=== PATIENT | male | born 1975 | race Caucasian/White ===

== ENCOUNTER 2019-11-11 07:29 | Outpatient (CLI) | payer MEDICARE, MEDICAID, SELFPAY ==
[2019-11-11 07:36] VITALS: BMI 21.7
--- NOTE | 2019-11-11 07:36 | ECG_ITS ---
NAME OF STUDY: LEXISCAN SESTAMIBI STRESS TEST INDICATION: Chest Pain LEXISCAN STRESS TEST ORDERING PHYSICIAN: Dany CLINICAL INFORMATION: Coronary artery disease with recurrent chest pain INTERPRETATION: 1. The patient was brought to the laboratory where Lexiscan was infused over 20 seconds. The resting blood pressure was 94/67. Maximum blood pressure was 131/69. The resting heart rate was 41 beats per minute. The maximum heart rate is 98 beats per minute. 2. The baseline electrocardiogram reveals sinus bradycardia with an old anterior wall AZ. 3. With Lexiscan infusion, there were no ST segment changes to suggest ischemia. 4. The patient experienced no symptoms or arrhythmias during the examination. CONCLUSION: 1. Unremarkable Lexiscan infusion. 2. Nuclear imaging to follow. Electronically Signed On 11-11-2019 15:53:03 CDT by Swapnil Saenz M.D. [email or web address]
--- NOTE | 2019-11-11 07:37 | NMCV_ITS ---
NM michael perf SPECT r/s* [id number] Sukhwinder Whitney Age: 44 Gender: M : 1975 Exam Date: 11/11/2019 08:39 Ordering Phys: Swapnil Saenz MD ([email or web address]) Technologist: ALEX Mcginnis Exam Location: [facility] Indications: Chest pain STRESS TEST Please see separate stress test report in [facility] for full findings IMAGE PROTOCOL Rest/Stress 1 Lexiscan Day Radiopharmaceutical Dose (mCi) Administration Site Administered by Rest: Tc-99m 10.9 IV ALEX Ty Sestamibi Stress:Tc-99m 32.2 IV ALEX Mcginnis Sestamiherminia Rest: 11-Nov-2019 60 Discovery 630 Stress: 11-Nov-2019 30 Discovery 630 0.4mg Lexiscan. Images obtained in supine and prone position. SPECT RESULTS Technical Quality: Excellent Raw Data Analysis: Normal Image Corrections: No attenuation or motion correction applied Summed Stress Score: 21 Summed Rest Score: 26 Summed Difference Score: 0 PERFUSION FINDINGS Medium-sized area of fixed perfusion defect noted in mid to distal anterior and anteroseptal wall on both rest and stress images suggestive of old myocardial infarction versus scarring. No stephan-infarct ischemia noted. FUNCTIONAL RESULTS (calculated via Gated SPECT) Stress Image LV EF (%): 46 Stress EDV (mL):208 TID: 0.93 Stress ESV (mL):113 Rest Image LV EF (%): 46 FUNCTIONAL FINDINGS: Mid to distal anterior apical akinesis IMPRESSIONS Medium-sized area of old myocardial infarction versus scarring noted in mid to distal anterior and anteroseptal wall suggestive of lesion in mid LAD territory. This study is negative for ischemia. EKG segment will be documented separately. Kavita Arvizu MD (Electronically Signed) Final Date: 11 November 2019 17:24 S
--- NOTE | 2019-11-11 09:19 | SUR.PREOP ---
Patient reports no pain or discomfort prior to the start of the procedure.
[2019-11-11] MEDS: regadenoson 0.4 Mg/5 ml Syringe IVP (09:34)
[2019-11-11 09:40] VITALS: BP 121/62; PULSE 64
== END 2019-11-11 07:30 | disposition home or self-care (01) ==
LOC: CDL 07:34
PROVIDERS: Family Provider Family Medicine; Visit Provider Internal Medicine Cardiovascular Disease
DX: R07.9 Chest pain, unspecified (principal); R94.39 Abnormal result of other cardiovascular function study
CPT/HCPCS: 78452; 93017; A9500; J2785

== ENCOUNTER 2020-11-07 00:23 | Inpatient (IN) | payer MEDICARE, MEDICAID, SELFPAY ==
[2020-11-07] VITALS (41 sets, daily range): BP systolic 86–134; BP diastolic 50–82; PULSE 39–94; RESP 12–34; TEMP 36.6–36.8; O2SAT 92–98; BMI 21.2
--- NOTE | 2020-11-07 00:35 | CTR_ITS ---
PROCEDURE INFORMATION: Exam: CT Head Without Contrast Exam date and time: 11/07/2020 12:36 AM Age: 45 years old Clinical indication: Weakness, extremity; Left; Patient HX: New onset L sided weakness; Additional info: Left sided weakness TECHNIQUE: Imaging protocol: Computed tomography of the head without contrast. Radiation optimization: All CT scans at this facility use at least one of these dose optimization techniques: automated exposure control; mA and/or kV adjustment per patient size (includes targeted exams where dose is matched to clinical indication); or iterative reconstruction. Other technique: STROKE PROTOCOL was implemented. COMPARISON: No relevant prior studies available. RADIATION DOSE METRICS: Total DLP (mGy-cm): 1365.17 FINDINGS: Brain: Small left basal ganglia chronic infarction is noted. No hemorrhage or evidence of acute infarction is seen. Cerebral ventricles: No ventriculomegaly. Paranasal sinuses: Visualized sinuses are unremarkable. No fluid levels. Mastoid air cells: Visualized mastoid air cells are well aerated. Bones/joints: Unremarkable. No acute fracture. Soft tissues: Unremarkable. CT/CT head wo con* [id number] IMPRESSION: No acute intracranial abnormality. ASSESSMENT: ASPECTS (Brittani Stroke Program Early CT Score) is 10. Radiation Dose CTDIVOL = (mGy): DLP = 1365.17 (mGy-cm)
--- NOTE | 2020-11-07 00:38 | ED_ITS ---
HPI - Neuro Symptoms/Deficit General: Chief Complaint: Neuro Symptoms/Deficit Stated Complaint: possible stroke Time Seen by Provider: 11/07/20 00:35 History of Present Illness: HPI Narrative: 45-year-old male with a history of hypertension coronary disease. He is on Plavix and aspirin. He is not anticoagulated. He presents with around 1030 onset of left-sided weakness, facial droop, language problems, this evening. He noticed it more a little before 11 when he got out of bed to turn off the TV. He fell at that time striking his left jaw on a nightstand. His brought him to the ER. She states that he has had strokes in the past, but they were asymptomatic, only found on MRI. Last Observed Normal: 22:30 Timing confirmed by: spouse Location: speech, left face, dysarthria, left arm and left leg History of same: No Severity: moderate Quality: weak and numb Relieving factors: none Exacerbating factors: none Context: sudden onset On Anticoagulants: No Associated symptoms: Reports weakness; Deny chest pain, cough, diaphoresis, fevers/chills, headache(s), nausea, seizures, short of breath, syncope or vomiting Treatments Prior to Arrival: none Review of Systems Const: Denies: fever(s), chills or diaphoresis Card: Denies: chest pain or syncope Resp: Denies: dyspnea or productive cough GI: Denies: abdominal pain, nausea, vomiting or diarrhea Neuro: Reports: numbness in extremities, weakness in extremities and lack of coordination; Denies: headache(s) [facility] PFSH: Medical History ASHD (arteriosclerotic heart disease) CVA (cerebral vascular accident) Dyslipidemia HTN (hypertension) Ischemic cardiomyopathy Myocardial infarction Tobacco abuse Surgical History S/P angioplasty with stent Social History Smoking and tobacco status: current every day smoker cigarettes Household members: spouse Marital status: Current occupational status: disabled NIH stroke score NIHSS: Level Of Consciousness - 1a: 0 Level Of Consciousness Questions - 1b: Both Correct Level Of Consciousness Commands - 1c: Both Correct Best Gaze - 2: Partial Gaze Palsy Visual Hinkle - 3: No Visual Loss Facial Palsy - 4: Partial Paralysis Motor Arm Right - 5: No Drift Motor Arm Left - 5: No Effort Against [place]mer[place] Motor Leg Right - 6: No Drift Motor Leg Left - 6: Drift Limb Ataxia - 7: Present In Two Limbs Sensory - 8: Mild To Moderate Loss Best Language - 9: Mild/Moderate Aphasia Dysarthia - 10: Mild/Moderate Dysarthia Extinction And Inattention - 11: 0 Score: Total Score: 12 Physical Exam Const: COMMON NORMALS: patient oriented x3 GENERAL APPEARANCE: well developed ORIENTATION/CONSCIOUSNESS: Yes oriented to person, Yes oriented to place and Yes oriented to time HENMT: COMMON NORMALS: normocephalic, external ears normal and Normal external nose present HEAD & SCALP: normocephalic FACE & SINUS: normal facial exam NOSE: Normal external nose present and No nasal discharge present EXTERNAL EAR: Yes external ears normal Eye: COMMON NORMALS: Equal, round and reactive pupils present, EOMs intact bilaterally and conjunctivae normal EYELID: eyelids normal CONJUNCTIVA: Yes conjunctivae normal PUPIL: Yes Equal, round and reactive pupils present Neck/C-Spine: GENERAL: No tracheal deviation Chest: COMMONS NORMALS: normal inspection of the chest CHEST: No tenderness Resp: COMMON NORMALS: clear to auscultation bilaterally EFFORT & INSPECTION: No tachypneic, No respiratory distress, No retractions, No uses accessory muscles and No tracheal deviation AUSCULTATION: clear to auscultation bilaterally, no rhonchi, no wheezes and lung sounds not diminished Cardio: COMMON NORMALS: regular rate and regular rhythm RATE: regular rate RHYTHM: regular rhythm HEART SOUNDS: no murmurs PERIPHERAL PULSES: radial pulses present GI: INSPECTION: No abdominal distension AUSCULTATION: No Hyperactive bowel sounds present and No Hypoactive bowel sounds present PALPATION: No Guarding due to palpation present (GI) and No Rigid due to palpation PERCUSSION: no dullness to percussion and no tympanic to percussion Neuro: COMMON NORMALS: patient oriented x3 SENSORIUM/ORIENTATION: Yes oriented to person, Yes oriented to place and Yes oriented to time CRANIAL NERVES: Yes CN VII (facial) Laterality: left CN VII left: facial droop COORDINATION/BALANCE: No rtgibs-dy-kpll test normal and No oarh-gf-gvpg test normal SPEECH: speech abnormal SENSORY EXAM: Yes sensory level loss detected MOTOR EXAM: Abnormal motor strength present, Pronator motor function present and Motor fasciculations present COORDINATION: eeagwo-nf-vdrf test abnormal and kwqm-uj-fglg test abnormal Psych: COMMON NORMALS: mental status grossly normal Skin: COMMON NORMALS: no rashes or lesions noted GENERAL SKIN EXAM: no rashes or lesions noted Course Consultations: Consultation #1: keely Time: 00:35 Consultation #2: mihai Time: 01:31 Vital Signs: Vital signs: Vital Signs Temperature 97.8 F 11/07/20 02:55 Pulse Rate 45 L 11/07/20 04:25 Respiratory Rate 20 H 11/07/20 04:25 Blood Pressure 86/59 11/07/20 04:25 Pulse Oximetry 95 11/07/20 02:26 MDM - Neuro Symptoms/Deficit MDM Narrative: Medical decision making narrative: Patient presents with significant symptoms of stroke with time of onset conducive to TPA therapy. I spoke with neurology. She agrees. Noncontrast head CT was negative. TPA was administered. There is no worsening of the patient's neurological status on discharge to the ICU. Lab Data: Labs: Lab Results 11/07/20 11/07/20 11/07/20 Range/Units 00:30 00:30 00:30 WBC 8.8 (4.0-10.0) 10^3/ uL RBC 4.60 (4.1-5.3) 10^6/u L Hgb 14.4 (11.7-16.6) g/dL Hct 41.5 L (42.0-52.0) % MCV 90.2 (80-94) fL MCH 31.3 (28.0-34.0) pg MCHC 34.7 (30.0-36.0) g/dL RDW 13.9 (12.1-15.1) % Plt Count 243 (130-400) 10^3/c mm MPV 9.8 (7.4-10.4) fL Neut % (Auto) 57.7 % Lymph % (Auto) 28.4 % Surry % (Auto) 8.3 % Eos % (Auto) 4.6 % Baso % (Auto) 0.8 % Neut # (Auto) 5.07 (1.8-7.7) 10^3/u L Lymph # (Auto) 2.5 (0.8-4.8) 10^3/u L Surry # (Auto) 0.7 (0.2-0.9) 10^3/u L Eos # (Auto) 0.4 (0.0-0.8) 10^3/u L Baso # (Auto) 0.1 (0.0-0.1) 10^3/u L Nucleated RBC % (a uto) 0 % Nucleated RBCs # 0.0 /100WBC PT 13.70 (12.1-14.9) SECO NDS INR 1.02 (0.8-1.2) APTT 29.3 (23.9-36.7) SECO NDS Sodium 140 (136-145) mmol/L Potassium 4.6 (3.5-5.1) mmol/L Chloride 101 (98-107) mmol/L Carbon Dioxide 28 (22-29) mmol/L Anion Gap 15.6 (5-19) BUN 8 (6-20) mg/dL Creatinine 0.8 (0.7-1.2) mg/dL GFR Calculation 103.6 (90-130) mL/min Glucose 117 H (65-115) mg/dL Estimat Average Gl ucose Hemoglobin A1c (4.0-6.0) % Calculated Osmolal ity 289 (285-295) mOsm/k g Calcium 8.8 (8.5-10.5) mg/dL Total Bilirubin 0.2 (0.15-1.2) mg/dL AST 24 (0-40) U/L ALT 17 (0-41) U/L Alkaline Phosphata se 72 (40-130) IU/L Total Protein 6.5 L (6.6-8.7) g/dL Albumin 4.2 (3.5-5.2) g/dL Globulin 2.3 (1.3-4.6) g/dL Triglycerides (0-150) mg/dL Cholesterol (0-200) mg/dL LDL Cholesterol, C alc (50-129) mg/dL HDL Cholesterol (60-100) mg/dL LDL/HDL Ratio (0.00-3.22) RATI O Cholesterol/HDL Ra usha (1.0-5.00) mg/dL Urine Color (Yellow) Urine Appearance (CLEAR) Urine pH (5-7) Ur Specific Gravit y (1.005-1.030) Urine Protein (Negative) Urine Glucose (UA) (Normal) Urine Ketones (Negative) Urine Blood (Negative) Urine Nitrate (Negative) Urine Bilirubin (Negative) Prot Sulfosalicyli c Acd (Negative) Urine Urobilinogen (Negative) mg/dL Ur Leukocyte Lacey ase (Negative) Urine RBC (0-2) /hpf Urine WBC (0-5) /hpf Ur Squamous Epith Cells (0-5) /hpf Amorphous Sediment /hpf Urine Bacteria (NONE) /hpf Urine Opiates Scre en (Negative) ng/mL Ur Barbiturates Sc reen (Negative) ng/mL Ur Phencyclidine S crn (Negative) ng/mL Ur Amphetamines Sc reen (Negative) ng/mL U Benzodiazepines Scrn (Negative) ng/mL Urine Cocaine Scre en (Negative) ng/mL U Marijuana (THC) Screen (Negative) ng/mL 11/07/20 11/07/20 11/07/20 Range/Units 00:30 00:30 01:51 WBC (4.0-10.0) 10^3/ uL RBC (4.1-5.3) 10^6/u L Hgb (11.7-16.6) g/dL Hct (42.0-52.0) % MCV (80-94) fL MCH (28.0-34.0) pg MCHC (30.0-36.0) g/dL RDW (12.1-15.1) % Plt Count (130-400) 10^3/c mm MPV (7.4-10.4) fL Neut % (Auto) % Lymph % (Auto) % Surry % (Auto) % Eos % (Auto) % Baso % (Auto) % Neut # (Auto) (1.8-7.7) 10^3/u L Lymph # (Auto) (0.8-4.8) 10^3/u L Surry # (Auto) (0.2-0.9) 10^3/u L Eos # (Auto) (0.0-0.8) 10^3/u L Baso # (Auto) (0.0-0.1) 10^3/u L Nucleated RBC % (a uto) % Nucleated RBCs # /100WBC PT (12.1-14.9) SECO NDS INR (0.8-1.2) APTT (23.9-36.7) SECO NDS Sodium (136-145) mmol/L Potassium (3.5-5.1) mmol/L Chloride (98-107) mmol/L Carbon Dioxide (22-29) mmol/L Anion Gap (5-19) BUN (6-20) mg/dL Creatinine (0.7-1.2) mg/dL GFR Calculation (90-130) mL/min Glucose (65-115) mg/dL Estimat Average Gl ucose 111 Hemoglobin A1c 5.5 (4.0-6.0) % Calculated Osmolal ity (285-295) mOsm/k g Calcium (8.5-10.5) mg/dL Total Bilirubin (0.15-1.2) mg/dL AST (0-40) U/L ALT (0-41) U/L Alkaline Phosphata se (40-130) IU/L Total Protein (6.6-8.7) g/dL Albumin (3.5-5.2) g/dL Globulin (1.3-4.6) g/dL Triglycerides 241 H (0-150) mg/dL Cholesterol 154 (0-200) mg/dL LDL Cholesterol, C alc 73 (50-129) mg/dL HDL Cholesterol 33 L (60-100) mg/dL LDL/HDL Ratio 2.21 (0.00-3.22) RATI O Cholesterol/HDL Ra usha 4.67 (1.0-5.00) mg/dL Urine Color Yellow (Yellow) Urine Appearance Sl hazy (CLEAR) Urine pH 8 H (5-7) Ur Specific Gravit y 1.010 (1.005-1.030) Urine Protein Neg (Negative) Urine Glucose (UA) Norm (Normal) Urine Ketones Negative (Negative) Urine Blood Neg (Negative) Urine Nitrate Negative (Negative) Urine Bilirubin Neg (Negative) Prot Sulfosalicyli c Acd Negative (Negative) Urine Urobilinogen Norm (Negative) mg/dL Ur Leukocyte Lacey ase Negative (Negative) Urine RBC None (0-2) /hpf Urine WBC None (0-5) /hpf Ur Squamous Epith Cells None (0-5) /hpf Amorphous Sediment 1+ /hpf Urine Bacteria Trace (NONE) /hpf Urine Opiates Scre en (Negative) ng/mL Ur Barbiturates Sc reen (Negative) ng/mL Ur Phencyclidine S crn (Negative) ng/mL Ur Amphetamines Sc reen (Negative) ng/mL U Benzodiazepines Scrn (Negative) ng/mL Urine Cocaine Scre en (Negative) ng/mL U Marijuana (THC) Screen (Negative) ng/mL 11/07/20 Range/Units 01:51 WBC (4.0-10.0) 10^3/ uL RBC (4.1-5.3) 10^6/u L Hgb (11.7-16.6) g/dL Hct (42.0-52.0) % MCV (80-94) fL MCH (28.0-34.0) pg MCHC (30.0-36.0) g/dL RDW (12.1-15.1) % Plt Count (130-400) 10^3/c mm MPV (7.4-10.4) fL Neut % (Auto) % Lymph % (Auto) % Surry % (Auto) % Eos % (Auto) % Baso % (Auto) % Neut # (Auto) (1.8-7.7) 10^3/u L Lymph # (Auto) (0.8-4.8) 10^3/u L Surry # (Auto) (0.2-0.9) 10^3/u L Eos # (Auto) (0.0-0.8) 10^3/u L Baso # (Auto) (0.0-0.1) 10^3/u L Nucleated RBC % (a uto) % Nucleated RBCs # /100WBC PT (12.1-14.9) SECO NDS INR (0.8-1.2) APTT (23.9-36.7) SECO NDS Sodium (136-145) mmol/L Potassium (3.5-5.1) mmol/L Chloride (98-107) mmol/L Carbon Dioxide (22-29) mmol/L Anion Gap (5-19) BUN (6-20) mg/dL Creatinine (0.7-1.2) mg/dL GFR Calculation (90-130) mL/min Glucose (65-115) mg/dL Estimat Average Gl ucose Hemoglobin A1c (4.0-6.0) % Calculated Osmolal ity (285-295) mOsm/k g Calcium (8.5-10.5) mg/dL Total Bilirubin (0.15-1.2) mg/dL AST (0-40) U/L ALT (0-41) U/L Alkaline Phosphata se (40-130) IU/L Total Protein (6.6-8.7) g/dL Albumin (3.5-5.2) g/dL Globulin (1.3-4.6) g/dL Triglycerides (0-150) mg/dL Cholesterol (0-200) mg/dL LDL Cholesterol, C alc (50-129) mg/dL HDL Cholesterol (60-100) mg/dL LDL/HDL Ratio (0.00-3.22) RATI O Cholesterol/HDL Ra usha (1.0-5.00) mg/dL Urine Color (Yellow) Urine Appearance (CLEAR) Urine pH (5-7) Ur Specific Gravit y (1.005-1.030) Urine Protein (Negative) Urine Glucose (UA) (Normal) Urine Ketones (Negative) Urine Blood (Negative) Urine Nitrate (Negative) Urine Bilirubin (Negative) Prot Sulfosalicyli c Acd (Negative) Urine Urobilinogen (Negative) mg/dL Ur Leukocyte Lacey ase (Negative) Urine RBC (0-2) /hpf Urine WBC (0-5) /hpf Ur Squamous Epith Cells (0-5) /hpf Amorphous Sediment /hpf Urine Bacteria (NONE) /hpf Urine Opiates Scre en Negative (Negative) ng/mL Ur Barbiturates Sc reen Negative (Negative) ng/mL Ur Phencyclidine S crn Negative (Negative) ng/mL Ur Amphetamines Sc reen Negative (Negative) ng/mL U Benzodiazepines Scrn Negative (Negative) ng/mL Urine Cocaine Scre en Negative (Negative) ng/mL U Marijuana (THC) Screen Positive H (Negative) ng/mL Critical Care Time Critical Care Time: Critical Care Time: Yes Total Critical Care Time: 40 Attestation: This case had a high probability of a clinically significant, sudden, or life threatening deterioration of this patient's condition which required my full and direct attention, intervention and personal management. Discharge Plan Discharge Patient Disposition: Admitted As Inpatient Admit Provider: Wilmer Harrison Clinical Impression: CVA (cerebral vascular accident) Qualifiers: CVA mechanism: thrombosis Precerebral and cerebral artery: middle cerebral artery Laterality of affected vessel: right Qualified Code(s): I63.311 - Cerebral infarction due to thrombosis of right middle cerebral artery Condition: Serious Coding Level of Care Code ED Accounts Manager for [facility] Fwd Exam Comprehensive
--- NOTE | 2020-11-07 00:41 | CTR_ITS ---
PROCEDURE INFORMATION: Exam: CT Angiography Head With Contrast, Arteriography Exam date and time: 11/07/2020 12:49 AM Age: 45 years old Clinical indication: Weakness; Additional info: Left weakness TECHNIQUE: Imaging protocol: Computed tomography angiography of the head with contrast. Exam focused on the arteries. 3D rendering (Not supervised by radiologist): MIP and/or 3D reconstructed images were created by the technologist. Radiation optimization: All CT scans at this facility use at least one of these dose optimization techniques: automated exposure control; mA and/or kV adjustment per patient size (includes targeted exams where dose is matched to clinical indication); or iterative reconstruction. Contrast material: OMNI 350; Contrast volume: 95 ml; Contrast route: INTRAVENOUS (IV); COMPARISON: CT head wo con* [id number] 11/07/2020 12:37 AM RADIATION DOSE METRICS: Total DLP (mGy-cm): 48 FINDINGS: ANTERIOR CIRCULATION: Right internal carotid artery: Unremarkable. Intracranial segment is patent with no significant stenosis. No aneurysm. Right middle cerebral artery: Short segment occlusion of the distal M1 segment of the right MCA is noted. The M2 and M3 branches of the right MCA are reconstituted via collateral flow. Right anterior cerebral artery: Unremarkable. No occlusion or significant stenosis. No aneurysm. Left internal carotid artery: Unremarkable. Intracranial segment is patent with no significant stenosis. No aneurysm. Left middle cerebral artery: The M1 segment of the left MCA is occluded. The M2 branches of the left MCA are reconstituted via collateral flow. Left anterior cerebral artery: Unremarkable. No occlusion or significant stenosis. No aneurysm. POSTERIOR CIRCULATION: Right vertebral artery: Unremarkable. No occlusion or significant stenosis. No aneurysm. Left vertebral artery: Unremarkable. No occlusion or significant stenosis. No aneurysm. Basilar artery: Unremarkable. No occlusion or significant stenosis. No aneurysm. Right posterior cerebral artery: Unremarkable. No occlusion or significant stenosis. No aneurysm. Left posterior cerebral artery: Unremarkable. No occlusion or significant stenosis. No aneurysm. 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 PROCEDURE INFORMATION: Exam: CT Angiography Neck With Contrast Exam date and time: 11/07/2020 12:49 AM Age: 45 years old Clinical indication: Weakness; Additional info: Left weakness TECHNIQUE: Imaging protocol: Computed tomography angiography of the neck with contrast. 3D rendering (Not supervised by radiologist): MIP and/or 3D reconstructed images were created by the technologist. Radiation optimization: All CT scans at this facility use at least one of these dose optimization techniques: automated exposure control; mA and/or kV adjustment per patient size (includes targeted exams where dose is matched to clinical indication); or iterative reconstruction. Contrast material: OMNI 350; Contrast volume: 95 ml; Contrast route: INTRAVENOUS (IV); COMPARISON: none available. RADIATION DOSE METRICS: Total DLP (mGy-cm): 2036.48 FINDINGS: Right common carotid artery: No stenosis. No dissection or occlusion. Right internal carotid artery: No stenosis of the extracranial segment. No dissection or occlusion. Right external carotid artery: No occlusion or stenosis of the origin. Left common carotid artery: No stenosis. No dissection or occlusion. Left internal carotid artery: No stenosis of the extracranial segment. No dissection or occlusion. Left external carotid artery: No occlusion or stenosis of the origin. Right vertebral artery: No stenosis. No dissection or occlusion. Left vertebral artery: No stenosis. No dissection or occlusion. Soft tissues: Normal. No significant soft tissue swelling. Bones/joints: No acute fracture. CT/CT angio headneck* [id number] IMPRESSION: Patent intracranial arteries. REFERENCES: NASCET CRITERIA. The degree of internal carotid artery stenosis is based on NASCET criteria. Normal is no stenosis. Mild is less than 50% stenosis. Moderate is 50-69% stenosis. Severe is 70% to 99% stenosis. Total occlusion is no detectable patent lumen. Radiation Dose CTDIVOL = (mGy): DLP = 2036.48~2036.48 (mGy-cm)
--- NOTE | 2020-11-07 00:41 | ECG_ITS ---
[facility] Test Date: 2020-11-07 Pat Name: Sukhwinder Whitney Department: Room: Gender: Male Medical Csr: : 1975 Requested By: Henrique Alvarez Order Number: [id number] Pushpa MD: Robb Wyman M.D. Measurements Intervals Cable Rate: P: MO: QRS: 0 QRSD: T: 0 QT: QTc: Interpretive Statements SINUS RHYTHM. BASELINE ARTIFACT ANTERIOR MYOCARDIAL INFARCTION, PROBABLY OLD Compared to ECG 05/10/2018 12:42:55 ANTERIOR MYOCARDIAL INFARCTION FINDING STILL PRESENT Electronically Signed On 11-07-2020 12:34:37 CDT by Robb Wyman M.D. [email or web address]
--- NOTE | 2020-11-07 00:41 | XRR_ITS ---
PROCEDURE INFORMATION: Exam: XR Chest Exam date and time: 11/07/2020 2:16 AM Age: 45 years old Clinical indication: Other: Weakness; Prior surgery; Surgery date: 6+ months; Surgery type: Stent TECHNIQUE: Imaging protocol: XR of the chest. Views: 1 view. COMPARISON: CR Chest 1 [place] [id number] 05/10/2018 1:27 PM FINDINGS: Lungs: The lungs are clear. Pleural spaces: Unremarkable. No pleural effusion. No pneumothorax. Heart/Mediastinum: Unremarkable. No cardiomegaly. Bones/joints: Unremarkable. XR/XR chest 1V portable [id number] IMPRESSION: No acute cardiopulmonary abnormality.
[2020-11-07 01:00] LABS: Basophils # 0.1 10^3/uL (0.0-0.1); Basophils % 0.8 %; Eosinophils # 0.4 10^3/uL (0.0-0.8); Eosinophils % 4.6 %; Hematocrit 41.5 % (42.0-52.0); Hemoglobin 14.4 g/dL (11.7-16.6); Lymphocytes # 2.5 10^3/uL (0.8-4.8); Lymphocytes % 28.4 %; Mean Corpuscular HGB Conc 34.7 g/dL (30.0-36.0); Mean Corpuscular Hemoglobin 31.3 pg (28.0-34.0); Mean Corpuscular Volume 90.2 fL (80-94); Mean Platelet Volume 9.8 fL (7.4-10.4); Monocytes # 0.7 10^3/uL (0.2-0.9); Monocytes % 8.3 %; Neutrophils # 5.07 10^3/uL (1.8-7.7); Neutrophils % 57.7 %; Nucleated Red Blood Cells % 0 %; Platelet Count 243 10^3/cmm (130-400); Red Cell Distribution Width 13.9 % (12.1-15.1); White Blood Count 8.8 10^3/uL (4.0-10.0)
[2020-11-07 01:10] LABS: INR 1.02 (0.8-1.2)
[2020-11-07 01:11] LABS: Partial Thromboplastin Time 29.3 SECONDS (23.9-36.7)
[2020-11-07 01:22] LABS: Alanine Aminotransferase 17 U/L (0-41); Albumin Level 4.2 g/dL (3.5-5.2); Alkaline Phosphatase 72 IU/L (40-130); Blood Urea Nitrogen 8 mg/dL (6-20); Calcium 8.8 mg/dL (8.5-10.5); Carbon Dioxide 28 mmol/L (22-29); Chloride 101 mmol/L (98-107); Globulin 2.3 g/dL (1.3-4.6); Glomerular Filtration Rate 103.6 mL/min (90-130); Glucose 117 mg/dL (65-115); Osmolality Calculated 289 mOsm/kg (285-295); Sodium 140 mmol/L (136-145); Total Bilirubin 0.2 mg/dL (0.15-1.2); Total Protein 6.5 g/dL (6.6-8.7)
[2020-11-07 01:24] LABS: Anion Gap 15.6 (5-19); Aspartate Amino Transferase 24 U/L (0-40); Potassium 4.6 mmol/L (3.5-5.1)
[2020-11-07] MEDS: iohexol 350 mg/mL 100 mL Btl IV (01:42)
[2020-11-07 02:08] LABS: Add Urine Microscopic? YES; Bilirubin Urine Neg (Negative); Blood Urine Neg (Negative); Glucose Urine UA Norm (Normal); Ketones Urine Negative (Negative); Leukocyte Esterase Urine Negative (Negative); Nitrate Urine Negative (Negative); Protein Urine Neg (Negative); Sulfosalicylic Acid Urine Negative (Negative); Urine Appearance SL Hazy (CLEAR); Urine Color Yellow (Yellow); Urobilinogen Urine Norm (Negative); pH Urine 8 (5-7)
[2020-11-07 02:09] LABS: Amphetamines Screen Urine Negative (Negative); Barbiturates Screen Urine Negative (Negative); Benzodiazepines Screen Urine Negative (Negative); Cocaine Screen Urine Negative (Negative); Opiate Screen Urine Negative (Negative); PCP Screen Urine Negative (Negative); THC Screen Urine Positive (Negative)
[2020-11-07 02:10] LABS: Bacteria Urine TRACE /hpf
[2020-11-07 02:11] LABS: Add Urine Culture? No; Amorphous Sediment Urine 1+ /hpf
[2020-11-07] MEDS: ondansetron 2 mg/ML SDV 2 mL 4 MG IVP (02:28)
[2020-11-07 02:43] LABS: Chol HDL Ratio 4.67 mg/dL (1.0-5.00); Cholesterol 154 mg/dL (0-200); HDL Cholesterol 33 mg/dL (60-100); LDL Cholesterol Calculated 73 mg/dL (50-129); LDL HDL Ratio 2.21 RATIO (0.00-3.22); Triglycerides 241 mg/dL (0-150)
--- NOTE | 2020-11-07 03:00 | PC.NURSE ---
Dr. Harrison gave v.o. for Labatelol if bp greater than 185/110 x1 if not effective start fiorella taylor
[2020-11-07 03:21] LABS: Estmated Average Glucose 111; Hemoglobin A1C 5.5 % (4.0-6.0)
--- NOTE | 2020-11-07 03:36 | PM.HP ---
Providers/Chief Complaint Admitting Physician: Wilmer Harrison Primary Care Provider: Mercedes Ng DO Chief Complaint: possible stroke History of Present Illness 45 year old with past medical history of hypertension, dyslipidemia, chronic systolic heart failure with last known EF of 35%, coronary artery disease with an LAD stent in 2008 who presented to the ER with acute onset of left upper/lower extremity weakness and expressive aphasia. Patient at bedside assisted with history. Symptoms started around 10:30 pm last evening. He was attempted to get up from couch and fell on to the floor where is was able to call his . EMR was called. Patient is on aspirin and plavix which he does not use on a routine bases. Upon arrival to ER he was noted to have a NIH of 12. Initial head CT did not show any evidence of acute hemorrhage. As he was with in the time frame. TPA infusion was started. CTA head and neck was then performed which also did not show flow limiting stenosis. Lab work up noted below did now show any acute abnormality. Patient was subsequently admitted to ICU Review of Systems General: Reports: ROS unobtainable due to medical condition Medications/Allergies Home Medications Medication Instructions Recorded Confirmed Last Taken Type aspirin 325 mg tablet 325 mg PO DAILY 07/09/19 04/25/20 Unknown History nitroglycerin 0.4 mg sublingual 0.4 mg SUBLINGUAL Q5M PRN 07/09/19 04/25/20 Unknown History tablet fenofibrate nanocrystallized 145 145 mg PO DAILY 90 Days #90 tab 11/05/19 04/25/20 Unknown Rx mg tablet lisinopril 5 mg tablet 5 mg PO DAILY 90 Days #90 tab 12/29/19 04/25/20 Unknown Rx carvedilol 25 mg tablet 25 mg PO BID 90 Days #180 tab 09/08/20 Unknown Rx clopidogrel 75 mg tablet 75 mg PO DAILY 90 Days #90 tab 10/24/20 Unknown Rx simvastatin 40 mg tablet 40 mg PO DAILY #90 tab 10/24/20 Unknown Rx Allergies Allergy/AdvReac Type Severity Reaction Status Date / Time azithromycin [From Zithromax] Allergy Unknown Unknown Verified 11/07/20 00:50 doxycycline Allergy Unknown Unknown Verified 11/07/20 00:50 Penicillins Allergy Unknown Unknown Verified 11/07/20 00:50 PFSH Acute PFSH: Medical History ASHD (arteriosclerotic heart disease) CVA (cerebral vascular accident) Dyslipidemia HTN (hypertension) Ischemic cardiomyopathy Myocardial infarction Tobacco abuse Surgical History S/P angioplasty with stent Social History Smoking and tobacco status: current every day smoker cigarettes Household members: spouse Marital status: Current occupational status: disabled Vitals/I&O/Wt Last Vital Signs Temp 97.8 F 11/07/20 02:55 Pulse 54 L 11/07/20 02:55 Resp 20 H 11/07/20 02:55 BP 100/76 11/07/20 02:55 Pulse Ox 95 11/07/20 02:26 11/06/20 11/06/20 11/07/20 14:59 22:59 06:59 Intake Total 48 / 48 Balance 48 / 48 Weight last 48 hrs Weight 59.693 kg Physical Exam Narrative: EXAM NARRATIVE: General : alert however dysarthric HEENT : Left sided droop CVS : RRR Chest : CTABL ABd;Soft NTND Ext : Left sided paralysis Data : 11/07/20 00:30 11/07/20 00:30 A&P Assessment and plan (1) CVA (cerebral vascular accident): Status: Acute (2) HTN (hypertension): Status: Acute Acute CVA Head CT / CTA H&N - > negative S/P TPA No anticoagulation for 24hr NPO until ST eval Neurocheck q1h Telemetry ECHO Bp Goal < 185/110 PRN Lebatalol vs nicardipine for agressive BP control PT/OT consult Consider neurology consult in am Attestations Medical Necessity Statement*: Anticipate > 2 midnight stayin hospital for eval and treatment Time Spent in Patient Care: Greater than 35 minutes Coding Level of Care Code 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
--- NOTE | 2020-11-07 03:46 | PC.NURSE ---
Patient AO to self and being in hospital, slight left facial droop noted,no slurred speech, left arm very weak unable to stage manager, strong in right. patient not cooperative with NIH assessment
--- NOTE | 2020-11-07 04:29 | PC.NURSE ---
BP 89/50 87/43 currentl 103/60, HR 40s and dips into the 30s, Dr. Harrison notified and gave order for 500 ml NS bolus
[2020-11-07] MEDS: sodium chloride 0.9% 500 ML 999 ML IV (04:34)
--- NOTE | 2020-11-07 05:00 | ECG_ITS ---
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 Measurements Intervals Parrish Rate: 46 P: 74 PA: 131 QRS: 3 QRSD: 100 T: 106 QT: 470 QTc: 415 Interpretive Statements SINUS BRADYCARDIA ANTEROLATERAL MYOCARDIAL INFARCTION [40+ ms Q WAVE IN I/aVL/V3-V6], PROBABLY RECENT Compared to ECG 11/07/2020 00:52:21 Indeterminate axis now present Myocardial infarct finding now present Electronically Signed On 11-07-2020 12:38:01 CDT by Robb Wyman M.D. [id number]
--- NOTE | 2020-11-07 05:11 | PC.NURSE ---
Dr. Harrison at bedside and gave v.o. to start NS at 50 ml/hr and an MRI to be performed at 1400 today
[2020-11-07] MEDS: sodium chloride 0.9% 1,000 ML 50 ML IV (05:18)
--- NOTE | 2020-11-07 05:30 | USCV_ITS ---
Sukhwinder Whitney Age: 45 Gender: M : 1975 Exam Date: 11/07/2020 06:13 Ordering Phys: Wilmer Harrison MD Technologist: Blanca Zuñiga [place] [facility] [place]: CVA BP: 89 / 56 HR: 41 Rhythm: Sinus Technical Quality: Good MEASUREMENTS (Male / Female) Normal Values 2D ECHO LV Diastolic Diameter PLAX 5.4 cm 4.2 - 5.9 / 3.9 - 5.3 cm LV Systolic Diameter PLAX 3.8 cm IVS Diastolic Thickness 0.9 cm 0.6 - 1.0 / 0.6 - 0.9 cm IVS Systolic Thickness 0.9 cm LVPW Diastolic Thickness 0.7 cm 0.6 - 1.0 / 0.6 - 0.9 cm LVPW Systolic Thickness 1.4 cm RV Chamber Size 3.3 cm LVOT Diameter 2.0 cm LV Ejection Fraction 2D Teich 55.9 % LV Ejection Fraction MOD 2C 47.2 % LV Ejection Fraction 2C AL 46.5 % LA Diameter 3.0 cm LA Width 3.5 cm LA Height 4.8 cm RA Width 3.4 cm RA Height 4.5 cm Aorta at Sinotubular Diameter 3.2 cm M-MODE LV Diastolic Diameter MM 5.7 cm 4.2 - 5.9 / 3.9 - 5.3 cm LV Systolic Diameter MM 4.6 cm LV Ejection Fraction MM Teich 37.6 % IVS Diastolic Thickness MM 0.9 cm 0.6 - 1.0 / 0.6 - 0.9 cm IVS Systolic Thickness MM 0.7 cm LVPW Diastolic Thickness MM 0.9 cm 0.6 - 1.0 / 0.6 - 0.9 cm LVPW Systolic Thickness MM 1.1 cm Aortic Annulus Diameter 2.4 cm LA Ao Ratio MM 1.1 MV E Point Septal Separation 0.5 cm DOPPLER AV Peak Velocity 127.0 cm/s LVOT Peak Velocity 92.0 cm/s AV Area Cont Eq vti 2.5 cm squared AV Area Cont Eq pk 2.3 cm squared MV Area PHT 7.1 cm squared MV E' Velocity 59.0 cm/s TR Peak Velocity 279.3 cm/s TR Peak Gradient 31.2 mmHg TV Peak E Velocity 72.0 cm/s Right Atrial Pressure 3.0 mmHg Pulmonary Artery Systolic Pressu 34.2 mmHg PV Peak Velocity 59.0 cm/s RV Acceleration Time 0.1 s RV Ejection Time 0.4 s RV AcT/ET 0.3 FINDINGS Left Ventricle Normal left ventricular size. LV systolic function is moderately reduced with EF of 35-40%. There is severe hypokinesis of the apical, apical inferoseptal and apical anterolateral wall. Diastolic function is indeterminate Right Ventricle The right ventricle is normal in size and function. Right Atrium The right atrium is normal in size. Left Atrium The left atrium is normal in size. Mitral Valve Structurally normal mitral valve without significant stenosis or prolapse. There is trace mitral regurgitation. Aortic Valve Structurally normal aortic valve without significant sclerosis or stenosis. There is no aortic regurgitation. Tricuspid Valve Structurally normal tricuspid valve without significant stenosis or regurgitation. Insufficient TR jet to calcualate RVSP Pulmonic Valve Not well visualized. There is trace pulmonic regurgitation. Pericardium Normal pericardium without effusion. Aorta Normal ascending aorta dimension. CONCLUSIONS LV systolic function is moderately reduced with EF of 35-40%. Above mentioned regional wall motion abnormalities Trace mitral regurgitation Trace pulmonic regurgitation Compared to prior echocardiogram from 07/19/2017, no significant changes are noted Robb Wyman MD (Electronically Signed) Final Date: 07 November 2020 16:33 S
--- NOTE | 2020-11-07 07:00 | PC.NURSE ---
NIH scale performed at bedside with Senthil WELSH. PT not cooperating very well. Pt kept looking directly at fingers despite multiple redirect to look straight. Questionable leg strength, unable to determine if pt truly is weak or just not wanting to finish stroke scale.
--- NOTE | 2020-11-07 08:20 | PC.NURSE ---
Pt falied bedside swallow test with 10ml of water. Pt started coughing. Dr Ray at bedside.
--- NOTE | 2020-11-07 08:33 | P.PNCC_ITS ---
Stroke Alert Activation ED Arrival Date: 11/07/20 ED Physican at Bedside: 00:35 Last Known Normal/at Baseline: < 1 hour ago Other Last Known Well Infomation: Dr. Henrique Collier activated the stroke team at 12:34 AM for this 45-year-old man who was laying in bed playing with his grandson, got up from the bed and fell over less than an hour before he arrived by private vehicle at [facility]. There was a delay imposed by inserting an IV and he was taken straight to CAT scan. I was in telephone contact with Dr. Collier, who sent a video of his CAT scan for my review and we were able to establish that his CAT scan of the head was negative. His blood pressure was 110/70 and his bedside glucose was normal. His last known normal time was 20-30 and his arrival in our emergency department was at 0030. His NIH stroke scale score was 12 based on right gaze preference, visual field cut, left hemiparesis and left hemianesthesia. Dr. Collier and I had a final review at the bedside after CT of the head and agreed to initiate TPA. The bolus was given approximately 30 minutes from arrival in the emergency department, with delay imposed by having to start an IV because he arrived by private vehicle. Stroke Alert Activated by: Triage/Dr. Collier Stroke Alert Activation Time: 00:35 Stroke MD @ Bedside Time: 00:40 NIH Stroke Scale Time: 00:35 NIH Stroke Scale Score: NIH Stroke Scale Score: 12 NIH stroke score NIHSS: Level Of Consciousness - 1a: 0 Level Of Consciousness Questions - 1b: Both Correct Level Of Consciousness Commands - 1c: Both Correct Best Gaze - 2: Partial Gaze Palsy Visual Hinkle - 3: No Visual Loss Facial Palsy - 4: Partial Paralysis Motor Arm Right - 5: No Drift Motor Arm Left - 5: No Effort Against [place] Motor Leg Right - 6: No Drift Motor Leg Left - 6: No Effort Against [place] Limb Ataxia - 7: Absent Sensory - 8: Mild To Moderate Loss Best Language - 9: No Aphasia Dysarthia - 10: Mild/Moderate Dysarthia Extinction And Inattention - 11: 0 Score: Total Score: 11 Stroke Alert Data/Treatment Time to CT of Head: 00:35 CT Results Time: 00:36 CT Impression: nothing acute Stroke Risk Factors: coronary artery disease, hypertension and substance abuse tPA Started Time: tPA Started - Time: 12:55 tPA Admin Prior to Arrival: No Patient & Family Educated on: Risk Factors and Treament Plan Standardized Stroke Orders Used: Yes Critical Care Time Critical Care Time: 30 - 74 mins A&P Assessment and plan (1) Left acute arterial ischemic stroke, MCA (middle cerebral artery): This 45-year-old man presented with an acute left middle cerebral artery stroke and was treated rapidly with TPA. He had no contraindications and had known observed time of onset. Dr. Collier and I agreed that the patient should have CT angiogram to rule out an M1 occlusion. Status: Acute Coding Level of Care Code Acute Video Effects Editor for [facility] Fwd Diagnoses Left acute arterial ischemic stroke, MCA (middle cerebral artery) I63.512
--- NOTE | 2020-11-07 09:25 | PC.PHAR ---
Addendum entered by Kierra Hernandez 11/07/20 09:29: entered mamadou in error its salo Original Note: -pt unable to verify medications-pt states his takes care of his meds-called aries no voicemail set up-naida at [facility] [address] [facility] states the pt had an appt on oct 25 2020 and canceled the appt-mamadou states they have rx on hold for plavix 75mg daily and simvastatin 40mg daily from 10/24/20 those medications were last filled on 03/20/20 90d/s-lisinopril 5mg daily last filled 08/18/20 90d/s,carvedilol 25mgbid last filled on 09/08/20 90d/s-aspirin was on a previous entered med list-
--- NOTE | 2020-11-07 11:21 | PC.CHAP ---
Pastoral Care Encounter/Spiritual Assessment Type of Contact [] Declined international broadcast music librarian visit [] Patient/Family/Request visit [] Outpatient visit [x] Follow-up visit [] Physician referral [] Code/Alert [] Routine visit [] Staff referral [] Actively dying [x] Patient sleeping [] Family support [] [] Out of room [] Palliative care [] [] Receiving care in room [] Pre-surgical visit [] Trauma [] Long length of stay [] ICU visit [] Other: Relational/Emotional Strength [] Patient feels connected with others/family/visitors/staff [] Distress [] Loneliness/isolation [] Abandonment Spirituality of Patient [] Person of Delfina [] Attends Yarsanism of their Delfina [] Believes in Prayer [] Reads Bible or Synagogue materials [] There are Spiritual issues to be addressed Steward/Stewardess Third Interventions [] Prayer [] Active listening [] Non-anxious presence [] Spiritual/emotional support [] Crisis/trauma care [] Spiritual counseling [] Bereavement support [] Provided bereavement packet [] Provided Bible/devotional materials [] Provided toy/stuffed animal, coloring book to patient or family member [] Provided Communion [] Anointing/[place] [] Salvation [] Completed spiritual assessment [] Other: Impact on Illness or Injury [] Angry [] Fearful [] Anxious [] Often cries [] Exhaustion [] Unable to work [] Unable to attend baptism [] Unable to walk/stand [] Unable to read [] Unable to drive [] Unable to eat/drink [] Unable to sleep [] Unable to be with family [] Patient intubated [] Other: Summary Time spent with patient
--- NOTE | 2020-11-07 11:32 | PC.NUTR ---
Nutrition consult for heart healthy/DASH diet (stroke dx) received. Offered nutrition education, however pt sleeping at this time and reports pt would not likely be interested. RD available for nutrition education at later time if appropriate. See RD assessment for further details.
--- NOTE | 2020-11-07 11:48 | PC.OT ---
HOLD OT EVALUATION DUE TO TPA ADMINISTRATION. WILL ATTEMPT AGAIN TOMORROW.
--- NOTE | 2020-11-07 12:36 | PM.PN ---
Subjective Subjective: Interval history: Patient was seen and examined this morning: Denies any, difficulty with speech, chest pain, shortness of breath. Blood pressure has been on the softer side, telemetry monitoring shows sinus bradycardia. Vitals/I&O/Wt Last Vital Signs Temp 97.9 F 11/07/20 12:00 Pulse 40 L 11/07/20 12:00 Resp 21 H 11/07/20 12:00 BP 117/66 11/07/20 12:00 Pulse Ox 95 11/07/20 12:00 11/06/20 11/07/20 11/07/20 22:59 06:59 14:59 Intake Total 548 / 548 Output Total 250 / 250 300 / 300 Balance 298 / 298 -300 / -300 Weight last 48 hrs Weight 59.693 kg Physical Exam Const: COMMON NORMALS: patient oriented x3 HENMT: COMMON NORMALS: normocephalic and atraumatic HEAD & SCALP: normocephalic and atraumatic Chest: CHEST: Yes Symmetrical chest wall rise Resp: COMMON NORMALS: normal respiratory effort, No retractions, No use of accessory muscles and clear to auscultation bilaterally EFFORT & INSPECTION: Yes symmetric chest movement AUSCULTATION: clear to auscultation bilaterally Cardio: COMMON NORMALS: regular rate, regular rhythm, S1 normal heart sound present, S2 normal heart sound present, No gallops present (Cardio), No murmurs present (Cardio), No rub (Cardio) and Peripheral pulses 2+ throughout RATE: regular rate RHYTHM: regular rhythm HEART SOUNDS: S1 normal heart sound present and S2 normal heart sound present PERIPHERAL PULSES: Peripheral pulses 2+ throughout GI: COMMON NORMALS: Normal to inspection, nondistended, normoactive bowel sounds present, Soft to palpation, non-tender, No hepatosplenomegaly present and no masses AUSCULTATION: Yes normoactive bowel sounds PALPATION: Yes Soft to palpation and Yes No hepatosplenomegaly present RECTAL EXAM: Yes deferred Extremity: COMMON NORMALS: no clubbing, cyanosis or edema and no pedal edema Neuro: COMMON NORMALS: patient oriented x3 and moves all extremities OTHER: left hemiparesis and left hemianesthesia Data : 11/07/20 00:30 11/07/20 00:30 A&P Assessment and plan (1) CVA (cerebral vascular accident): Status: Acute Qualifiers: CVA mechanism: thrombosis Laterality of affected vessel: right Precerebral and cerebral artery: middle cerebral artery Qualified Code(s): I63.311 - Cerebral infarction due to thrombosis of right middle cerebral artery (2) HTN (hypertension): Status: Acute (3) Left acute arterial ischemic stroke, MCA (middle cerebral artery): Status: Acute (4) S/P angioplasty with stent: Status: Acute (5) Sinus bradycardia: Status: Acute (6) Tobacco abuse: Status: Acute Acute CVA : Left acute arterial ischemic stroke, MCA (middle cerebral artery): Head CT : No acute intracranial pathology CTA H&N -Short segment occlusion of the distal M1 , segment of the right MCA is noted. The M2 and M3 branches of the right MCA, are reconstituted via collateral flow. S/P TPA No anticoagulation for 24hr SPL evaluation done: Dysphagia pur?ed diet with nectar thick liquids. PT OT evaluation: Neurocheck q1h Telemetry ECHO : LV systolic function moderately reduced with EF of 35 to 40%. severe hypokinesis of the apical, apical inferoseptal and apical anterolateral wall.Compared to prior echocardiogram from 07/19/2017, no significant. MRI brain without contrast: Normal saline @ 50cc/hr Bp Goal < 185/110 PRN Lebatalol vs nicardipine for agressive BP control Appreciate neurology input: Attestations Medical Necessity Statement*: Patient needs to be in hospital for management of acute CVA Coding Level of Care Code Acute Furniture Inspector for Reynaldo Terrell Diagnoses CVA (cerebral vascular accident) I63.311 CVA mechanism: thrombosis Laterality of affected vessel: right Precerebral and cerebral artery: middle cerebral artery HTN (hypertension) I10 Left acute arterial ischemic stroke, MCA (middle cerebral artery) I63.512 S/P angioplasty with stent Z95.820 Sinus bradycardia R00.1 Tobacco abuse Z72.0
--- NOTE | 2020-11-07 14:30 | MRR_ITS ---
PROCEDURE INFORMATION: Exam: MR Head Without Contrast Exam date and time: 11/07/2020 6:42 PM Age: 45 years old Clinical indication: Other: Stroke; Additional info: Follow up after tpa TECHNIQUE: Imaging protocol: MR of the head without contrast. COMPARISON: CT head wo con* [id number] 11/07/2020 12:37 AM FINDINGS: Brain: Acute restricted diffusion in the right caudate head and right putamen. Associated T2 hyperintense signal changes. Chronic encephalomalacia in the left putamen. Negative for intracranial hemorrhage. No mass effect changes. Negative for midline shift. [place] matter and white matter interfaces are preserved. Cerebral ventricles: Normal. No ventriculomegaly. Bones/joints: Unremarkable. Paranasal sinuses: Small rounded mucous retention cysts within bilateral maxillary sinuses. Mastoid air cells: Normal as visualized. No mastoid effusion. Orbital cavity: Unremarkable. Soft tissues: Unremarkable. MR/MR head wo con* [id number] IMPRESSION: Acute ischemic infarction in the right basal ganglia involving the right caudate head and the right putamen.
--- NOTE | 2020-11-07 14:50 | PC.NURSE ---
Pt stated he wanted to leave. Discussed with pt risks falling after tPA, maybe bleeding to from hitting head. Choking while drinking and eating regular food which may cause pneumonia,which in turn may necessitate a tube in his throat for breathing. Pt's does not want him to leave and told him no. During discussion pt implied he was angry about the thickened liquids. Dr Rodriguez notified of incident.
--- NOTE | 2020-11-07 15:08 | PC.NURSE ---
Report faxed to U.
--- NOTE | 2020-11-07 15:13 | PC.RESP ---
Smoking Cessation information sent to patient.
--- NOTE | 2020-11-07 15:21 | PC.NURSE ---
Report called to CSU and given to BLAISE Christie.
--- NOTE | 2020-11-07 15:54 | PC.NURSE ---
NIH scale completed at room transfer by BLAISE Christie and this nurse. Further report given to Pratik Rn
--- NOTE | 2020-11-07 17:12 | PC.PT ---
HOLD PT EVALUATION DUE TO TPA ADMINISTRATION. WILL ATTEMPT AGAIN TOMORROW.
--- NOTE | 2020-11-07 18:19 | PC.NURSE ---
off unit to MRI of head w/o contrast via stretcher w/transport.
[2020-11-07 20:35] LABS: Glucose Point of Care 94 mg/dL (70-110)
[2020-11-08 01:57] VITALS: BP 92/62; PULSE 45; RESP 15; TEMP 36.6
[2020-11-08 03:45] VITALS: BP 97/56; PULSE 40; RESP 23; TEMP 36.6; O2SAT 96
[2020-11-08] MEDS: sodium chloride 0.9% 1,000 ML 50 ML IV (03:55)
[2020-11-08 05:19] LABS: Estmated Average Glucose 105; Hemoglobin A1C 5.3 % (4.0-6.0)
[2020-11-08 05:24] VITALS: PULSE 45
[2020-11-08 05:25] LABS: Chol HDL Ratio 4.89 mg/dL (1.0-5.00); Cholesterol 137 mg/dL (0-200); HDL Cholesterol 28 mg/dL (60-100); LDL Cholesterol Calculated 83 mg/dL (50-129); LDL HDL Ratio 2.96 RATIO (0.00-3.22); Triglycerides 132 mg/dL (0-150)
[2020-11-08 06:39] LABS: Glucose Point of Care 101 mg/dL (70-110)
--- NOTE | 2020-11-08 07:38 | CT_ITS ---
WS: [id number] CT HEAD NONCONTRAST HISTORY: S/P TPA TECHNIQUE: Contiguous axial imaging performed through the brain in 2.5 mm imaging. Bone and soft tiss ue windows. Sagittal and coronal reformats reviewed. All CT scans at [facility] use at le ast one of these dose optimization techniques: automated exposure control; mA and/or kV adjustment pe r patient size (includes targeted exams where dose is matched to clinical indication); or iterative r econstruction. DLP: 2211.9 mGy.cm COMPARISON: 11/07/2020 Evolving infarct in the RIGHT caudate head and basal ganglia with extension into the putamen. This wa s an acute infarct recently described by MRI. No hemorrhagic transformation. There is a prior infarct in the external capsule on the LEFT and at the LEFT caudate head. Mild atrophy and mild chronic microvascular ischemic disease otherwise. Ventricles: Normal size with no hydrocephalus. Mucoperiosteal thickening in the ethmoid air cells. Paranasal sinuses: As visualized are clear. Mastoid air cells: Well pneumatized. Calvarium and scalp: Skull is intact with no soft tissue edema or swelling. CT/CT head wo con* [id number] IMPRESSION: 1. No evidence for hemorrhagic transformation of the acute infarct involving t he RIGHT caudate nucleus and basal ganglia. 2. No midline shift or mass effect.
[2020-11-08 07:46] VITALS: BP 106/70; PULSE 58; RESP 18; TEMP 37.1; O2SAT 97
[2020-11-08 08:00] VITALS: BP 106/70; PULSE 58; RESP 18; TEMP 37.1
[2020-11-08] MEDS: clopidogrel 75 mg Tablet PO (09:34)
[2020-11-08] MEDS: aspirin 81 mg EC Tablet PO (09:34)
--- NOTE | 2020-11-08 10:24 | P.DS_ITS ---
Discharge Providers Date of Admission: 11/07/20 02:09 Date of Discharge: November 08, 2020 Attending Provider at Admission: Wilmer Harrison Attending Provider at Discharge: Burt Rodriguez MD Primary Care Provider: Mercedes Ng DO Diagnoses at Discharge Discharge Diagnosis (1) CVA (cerebral vascular accident): Status: Acute Qualifiers: CVA mechanism: thrombosis Laterality of affected vessel: right Precerebral and cerebral artery: middle cerebral artery Qualified Code(s): I63.311 - Cerebral infarction due to thrombosis of right middle cerebral artery (2) Left acute arterial ischemic stroke, MCA (middle cerebral artery): Status: Acute (3) Sinus bradycardia: Status: Acute (4) S/P angioplasty with stent: Status: Acute Permanent problem details: S/p PCI to LAD for history of acute anterior wall TX in 2008 (5) HTN (hypertension): Status: Acute (6) Tobacco abuse: Status: Acute Reason for Visit Reason for Visit: possible stroke 65690 I63.512 Hospital Course Hospital Course 45 year old with past medical history of hypertension, dyslipidemia, chronic systolic heart failure with last known EF of 35%, coronary artery disease with an LAD stent in 2008 who presented to the ER with acute onset of left upper/lower extremity weakness and expressive aphasia. He was admitted for the management of acute CVA. S/p TPA. Further work-up in the hospital revealed Acute CVA : Left acute arterial ischemic stroke, MCA (middle cerebral artery): Head CT : No acute intracranial pathology. Repeat CT head without contrast after 24 hours of TPA: No evidence for hemorrhagic transformation of the acute infarct involving the RIGHT caudate nucleus and basal ganglia.No midline shift or mass effect. CTA H&N -Short segment occlusion of the distal M1 , segment of the right MCA is noted. The M2 and M3 branches of the right MCA, are reconstituted via collateral flow. MRI brain without contrast: Acute ischemic infarction in the right basal ganglia involving the right caudate head and the right putamen. 2D echo: LV systolic function moderately reduced with EF of 35 to 40%. severe hypokinesis of the apical, apical inferoseptal and apical anterolateral wall.Compared to prior echocardiogram from 07/19/2017, no significant.Telemetry monitoring continue to show sinus bradycardia. Patient was continued on aspirin Plavix and statin, after the TPA window period was over. Blood pressure was well controlled, he was slightly hypotensive, for which she was continued on IV fluids. At the time of discharge he continued to have minimal left sided weakness. PT OT and speech evaluation was done. He was safe to be discharged home on home exercise regimen, initially he was started on pur?ed diet as he failed bedside swallow evaluation test,SPL was on board but later he was advised to advance it slowly, starting with mechanical soft. Given the presence of significant sinus bradycardia, carvedilol was discontinued, lisinopril was also kept on hold for a Week on discharge his blood pressure was on the soft side.He was advised to resume lisinopril once the blood pressure comes to his baseline. Patient responded well to the above medical management and was discharged in stable condition to home, he will continue to follow neurology as well as primary care and cardiology as an outpatient. Physical Exam Const: COMMON NORMALS: patient oriented x3 HENMT: COMMON NORMALS: normocephalic and atraumatic HEAD & SCALP: normocephalic and atraumatic Chest: CHEST: Yes Symmetrical chest wall rise Resp: COMMON NORMALS: normal respiratory effort, No retractions, No use of accessory muscles and clear to auscultation bilaterally EFFORT & INSPECTION: Yes symmetric chest movement AUSCULTATION: clear to auscultation bilaterally Cardio: COMMON NORMALS: regular rate, regular rhythm, S1 normal heart sound present, S2 normal heart sound present, No gallops present (Cardio), No murmurs present (Cardio), No rub (Cardio) and Peripheral pulses 2+ throughout RATE: regular rate RHYTHM: regular rhythm HEART SOUNDS: S1 normal heart sound present and S2 normal heart sound present PERIPHERAL PULSES: Peripheral pulses 2+ throughout GI: COMMON NORMALS: Normal to inspection, nondistended, normoactive bowel sounds present, Soft to palpation, non-tender, No hepatosplenomegaly present and no masses AUSCULTATION: Yes normoactive bowel sounds PALPATION: Yes Soft to palpation and Yes No hepatosplenomegaly present RECTAL EXAM: Yes deferred Extremity: COMMON NORMALS: no clubbing, cyanosis or edema and no pedal edema Neuro: COMMON NORMALS: patient oriented x3 and moves all extremities OTHER: left hemiparesis and left hemianesthesia Discharge Data Data Completed and Pending: Completed Studies During Hospitalization Category Date Time Status CT angio headneck * 40603/[id number] Stat Cat Scan 11/07/20 00:[address] head wo con* 7 0450 Routine Cat Scan 11/08/20 07:[address] head wo con* 7 0450 Stat Cat Scan 11/07/20 00:35 Completed XR chest 1V nayely ble [id number] Stat Exams 11/07/20 00:41 Completed MR head wo con* 7 0551 Routine MRI 11/07/20 14:30 Completed CV echo complete* [id number] Routine Ultrasound 11/07/20 05:30 Completed Labs from last 24 hours 11/08/20 11/08/20 11/08/20 06:35 04:21 04:21 POC Glucose 101 Estimat Average Gl ucose 105 Hemoglobin A1c 5.3 Triglycerides 132 Cholesterol 137 LDL Cholesterol, C alc 83 HDL Cholesterol 28 L LDL/HDL Ratio 2.96 Cholesterol/HDL Ra usha 4.89 11/07/20 20:26 POC Glucose 94 Estimat Average Gl ucose Hemoglobin A1c Triglycerides Cholesterol LDL Cholesterol, C alc HDL Cholesterol LDL/HDL Ratio Cholesterol/HDL Ra usha Vitals: Last Vital Signs Temp 98.8 F 11/08/20 07:46 Pulse 58 L 11/08/20 07:46 Resp 18 11/08/20 07:46 BP 106/70 11/08/20 07:46 Pulse Ox 97 11/08/20 07:46 Discharge Plan Discharge Patient Disposition: Home Condition: Fair Prescriptions: New nicotine 14 mg/24 hr patch 24 hour 1 patch transdermal DAILY Qty: 28 RF: 3 Protonix 20 mg tablet,delayed release (DR/EC) 20 mg PO DAILY Qty: 30 RF: 3 Continued nitroglycerin [Nitrostat] 0.4 mg tablet, sublingual 0.4 mg SUBLINGUAL Q5M PRN (Reason: Chest Pain) RF: 0 clopidogrel 75 mg tablet 75 mg PO DAILY RF: 0 simvastatin 40 mg tablet 40 mg PO DAILY RF: 0 Changed aspirin 325 mg tablet 81 mg PO DAILY Qty: 30 RF: 3 Held lisinopril 5 mg tablet 5 mg PO DAILY 90 Days Qty: 90 RF: 3 Hold Instructions: Resume on 11/15/20. Discontinued carvedilol 25 mg tablet 25 mg PO BID RF: 0 Discharge Orders: Discharge Order (Routine); Ordered 11/08/20 Ordered By: Burt Rodriguez Referrals: Hannah Ray MD [Physician] - 2 weeks (Please follow-up with Chris Frost on November 16 at 2:45P.M. If you have any questions or need to reschedule. Please call ) Robb Wyman M.D [Physician] - 1 month (Please follow-up with Dr. Wyman on December 06 at 3:45P.M. If you have any questions or need to reschedule. Please call ) Mercedes Ng, [Primary Care Provider] - 4-7 days (Please follow-up Dr. Ng on November 15 at 11:15A.M. If you have any questions or need to reschedule. Please call ) Discharge Diet: GI Soft Discharge Activity: Increase activity as tolerated Patient Instructions: Nicotine (Absorbed through the skin), Pantoprazole (By mouth), How to Stop Smoking (DC), Ischemic Stroke (DC), Chronic Dysphagia (DC), Self Care Measures After a Stroke (DC), Bradycardia (DC), Stroke Stoplight, Fall Prevention Discharge Attestations Time Spent in Discharge Care*: less than 30 min Specific Discharge Activities: educating patient, educating and/or supporting family/caregiver, discussing with pcp/other providers, discussing with case manager/social workers/dc planners, documenting/other paperwork and evaluating patient/reviewing data Status at Discharge: Cognitive status at discharge: cognitively intact , Behavioral status at discharge: cooperative , Functional status at discharge: independent ambulation Overall status at discharge: patient is back to baseline Quality Metrics Clinical Quality Measures During this hospital stay, did patient experience: None Coding Level of Care Code Acute Chg FW DC note Diagnoses CVA (cerebral vascular accident) I63.311 CVA mechanism: thrombosis Laterality of affected vessel: right Precerebral and cerebral artery: middle cerebral artery Left acute arterial ischemic stroke, MCA (middle cerebral artery) I63.512 Sinus bradycardia R00.1 S/P angioplasty with stent Z95.820 HTN (hypertension) I10 Tobacco abuse Z72.0
--- NOTE | 2020-11-08 12:00 | PC.NURSE ---
Discharge to home with Instructed pt and on follow-up appointments as scheduled. Educated pt on dose change to his aspirin, informed pt and on holding his lisinopril and per doctors ordered resume date due to soft range of his blood pressure. 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 self-care measures after stroke and stroke stoplight discuss to pt. provided pt with educational materials. pt and verbalizes good understanding on how to seek medical emergency for any worsening of stroke symptoms. discharge packet provided.
== END 2020-11-08 12:20 | disposition home or self-care (01) | DRG 62 ==
LOC: ER 01:49 → ICU 02:28 → CSU 15:35
PROVIDERS: Admitting Provider Hospitalist; Emergency Provider Emergency Medicine; PCP Family Medicine; Visit Provider Internal Medicine
DX: I63.311 Cerebral infarction due to thrombosis of right middle cerebral artery (principal); G81.94 Hemiplegia, unspecified affecting left nondominant side; I50.22 Chronic systolic (congestive) heart failure; R47.01 Aphasia; H53.9 Unspecified visual disturbance; R29.712 NIHSS score 12; I11.0 Hypertensive heart disease with heart failure; E78.5 Hyperlipidemia, unspecified; I25.10 Atherosclerotic heart disease of native coronary artery without angina pectoris; Z95.5 Presence of coronary angioplasty implant and graft; I25.5 Ischemic cardiomyopathy; I25.2 Old myocardial infarction; F17.210 Nicotine dependence, cigarettes, uncomplicated; Z79.02 Long term (current) use of antithrombotics/antiplatelets
CPT/HCPCS: 36415; 36416; 70450; 70496; 70498; 70551; 71045; 80053; 80061; 80306; 81001; 82962; 83036; 85025; 85610; 85730; 92507; 92523; 92526; 92610; 93005; 93306; 96374; 96375; 97110; 97161; 97165; 99291; J2405; J2997; J7030; J7040; Q9967

== ENCOUNTER 2021-04-13 07:52 | Emergency (ER) | payer MEDICARE, MEDICAID, SELFPAY ==
--- NOTE | 2021-04-13 08:02 | ED_ITS ---
HPI - Chest Pain General: Chief Complaint: Chest Pain Stated Complaint: Chest Pain, SOB Time Seen by Provider: 04/13/21 07:57 History of Present Illness: HPI narrative: 46-year-old male with history of CAD who is on baby aspirin and Plavix presents with chest pain. States this is been ongoing for 1 week. Reports it is exertional. Denies any pleurisy. Denies radiation to the back. Denies nausea vomiting cough or fever. Denies lower extremity pain or swelling. States that it is currently a 2 out of 10 but with activity goes up to about 6-8 out of 10 depending on intensity of activity. Review of Systems Narrative: - CONSTITUTIONAL: Denies weight loss, fever and chills. - HEENT: Denies changes in vision and hearing. - RESPIRATORY: Denies SOB and cough. - CV: As above - GI: Denies abdominal pain, nausea, vomiting and diarrhea. - : Denies dysuria and urinary frequency. - MSK: Denies myalgia and joint pain. - SKIN: Denies rash and pruritus. - NEUROLOGICAL: Denies headache, weakness, numbness and syncope. - PSYCHIATRIC: Denies suicidal ideation PFS ED PFSH: Medical History ASHD (arteriosclerotic heart disease) CVA (cerebral vascular accident) Dyslipidemia HTN (hypertension) Ischemic cardiomyopathy Left acute arterial ischemic stroke, MCA (middle cerebral artery) Myocardial infarction Sinus bradycardia Tobacco abuse Surgical History S/P angioplasty with stent S/p PCI to LAD for history of acute anterior wall [place] in 2008 Social History Smoking and tobacco status: current every day smoker cigarettes Packs smoked per day: 0.3 Household members: spouse Marital status: Current occupational status: disabled Current occupation: none Physical Exam Narrative: EXAM NARRATIVE: - GENERAL: Alert and oriented x 3. No acute distress. Well-nourished. - EYES: EOMI. Anicteric. - HENT: Atraumatic, no C-spine tenderness. Moist mucous membranes. No scleral icterus. No cervical lymphadenopathy. - LUNGS: Clear to auscultation bilaterally. No accessory muscle use. Equal lung sounds bilaterally. No respiratory distress. - CARDIOVASCULAR: Regular rate and rhythm. No murmur. No JVD. - ABDOMEN: Soft, non-tender and non-distended. Negative CVA tenderness bilaterally, no rebound or guarding, negative Lee sign. No palpable masses. - EXTREMITIES: No edema. Non-tender. - SKIN: No rashes or lesions. Warm. - NEUROLOGIC: No meningismus or focal neurological deficits. CN II-XII grossly intact. - PSYCHIATRIC: Cooperative. Appropriate mood and affect. Course Vital Signs: Vital signs: Vital Signs Temperature 98.7 F 04/13/21 08:05 Pulse Rate 60 04/13/21 10:08 Respiratory Rate 15 04/13/21 10:08 Blood Pressure 100/64 04/13/21 10:08 Pulse Oximetry 95 04/13/21 10:08 MDM - Chest Pain MDM Narrative: Medical decision making narrative: 46-year-old male with history of CAD presents with chest pain. Aspirin provided. Pain resolved after 1 nitro. X-ray does not reveal pneumothorax or consolidation. Initial EKG is concerning for minor ST elevation in anterior leads but this is the same as his previous EKG from several months ago. Repeat EKG is not significantly changing. This time he is chest pain-free. Troponin is unremarkable. Suspect EKG changes are chronic at this time. However plan was to obtain further lab work including D-dimer and second EKG. Prior to being able to obtain this patient decided he wants to leave and states that he would like to leave AGAINST MEDICAL ADVICE. Significant review of risks was performed. Patient is adamant and does not appear altered. I do believe he has capacity to make this decision. Patient left AMA. Lab Data: Labs: Lab Results 04/13/21 04/13/21 04/13/21 08:45 08:45 08:45 WBC 7.9 10^3/uL 10^3/ uL (4.0-10.0) RBC 4.66 10^6/uL 10^6 /uL (4.1-5.3) Hgb 14.7 g/dL g/dL (11.7-16.6) Hct 44.8 % % (42.0-52.0) MCV 96.1 fl H fl (80-94) MCH 31.5 pg pg (28.0-34.0) MCHC 32.8 g/dL g/dL (30.0-36.0) RDW 15.0 % % (12.1-15.1) Plt Count 247 10^3/cmm 10^3 /cmm (130-400) MPV 9.7 fL fL (7.4-10.4) Neut % (Auto) 73.5 % % Lymph % (Auto) 17.9 % % [place] % (Auto) 6.6 % % Eos % (Auto) 1.5 % % Baso % (Auto) 0.4 % % Neut # (Auto) 5.83 10^3/uL 10^3 /uL (1.8-7.7) Lymph # (Auto) 1.4 10^3/uL 10^3/ uL (0.8-4.8) [place] # (Auto) 0.5 10^3/uL 10^3/ uL (0.2-0.9) Eos # (Auto) 0.1 10^3/uL 10^3/ uL (0.0-0.8) Baso # (Auto) 0.0 10^3/uL 10^3/ uL (0.0-0.1) Nucleated RBC % (a uto) 0 % % Nucleated RBCs # 0.0 /100WBC /100W BC PT Cancelled INR Cancelled APTT Cancelled D-Dimer Cancelled Sodium Cancelled Potassium Cancelled Chloride Cancelled Carbon Dioxide Cancelled Anion Gap Cancelled BUN Cancelled Creatinine Cancelled GFR Calculation Cancelled Glucose Cancelled Calculated Osmolal ity Cancelled Calcium Cancelled Total Bilirubin Cancelled AST Cancelled ALT Cancelled Alkaline Phosphata se Cancelled Troponin T Baselin e NT-Pro-B Natriuret Pep Cancelled Total Protein Cancelled Albumin Cancelled Globulin Cancelled Lipase Cancelled SARS-CoV-2 Ag (Rap id) 04/13/21 04/13/21 04/13/21 08:45 08:50 09:10 WBC RBC Hgb Hct MCV MCH MCHC RDW Plt Count MPV Neut % (Auto) Lymph % (Auto) [place] % (Auto) Eos % (Auto) Baso % (Auto) Neut # (Auto) Lymph # (Auto) [place] # (Auto) Eos # (Auto) Baso # (Auto) Nucleated RBC % (a uto) Nucleated RBCs # PT INR APTT D-Dimer Sodium 137 mmol/L mmol/L (136-145) Potassium 4.2 mmol/L mmol/L (3.5-5.1) Chloride 105 mmol/L mmol/L (98-107) Carbon Dioxide 21 mmol/L L mmol/ L (22-29) Anion Gap 15.2 (5-19) BUN 15 mg/dL mg/dL (6-20) Creatinine 0.5 mg/dL L mg/dL (0.7-1.2) GFR Calculation 177.5 mL/min H mL /min (90-130) Glucose 103 mg/dL mg/dL (65-115) Calculated Osmolal ity 285 mOsm/kg mOsm/ kg (285-295) Calcium 8.7 mg/dL mg/dL (8.5-10.5) Total Bilirubin 0.2 mg/dL mg/dL (0.15-1.2) AST 17 U/L U/L (0-40) ALT 15 U/L U/L (0-41) Alkaline Phosphata se 66 IU/L IU/L (40-130) Troponin T Baselin e Cancelled NT-Pro-B Natriuret Pep 220 pg/mL H pg/mL (0-125) Total Protein 6.3 g/dL L g/dL (6.6-8.7) Albumin 4.0 g/dL g/dL (3.5-5.2) Globulin 2.3 g/dL g/dL (1.3-4.6) Lipase 176 U/L H U/L (13-60) SARS-CoV-2 Ag (Rap id) Negative (Negative) 04/13/21 04/13/21 09:10 09:10 WBC RBC Hgb Hct MCV MCH MCHC RDW Plt Count MPV Neut % (Auto) Lymph % (Auto) [place] % (Auto) Eos % (Auto) Baso % (Auto) Neut # (Auto) Lymph # (Auto) [place] # (Auto) Eos # (Auto) Baso # (Auto) Nucleated RBC % (a uto) Nucleated RBCs # PT 14.50 SECONDS SEC ONDS (12.1-14.9) INR 1.09 (0.8-1.2) APTT 30.1 SECONDS SECO NDS (23.9-36.7) D-Dimer <= 0.27 ug/mIFEU ug/mIFEU (0-0.59) Sodium Potassium Chloride Carbon Dioxide Anion Gap BUN Creatinine GFR Calculation Glucose Calculated Osmolal ity Calcium Total Bilirubin AST ALT Alkaline Phosphata se Troponin T Baselin e 7 ng/L ng/L (0-15) NT-Pro-B Natriuret Pep Total Protein Albumin Globulin Lipase SARS-CoV-2 Ag (Rap id) EKG Data^: EKG 1: Other EKG comments: Sinus rhythm, rate of 63, possible ST elevation in leads V3 and V4. There are also anterolateral T wave inversions. This is similar to previous EKG from November. Discharge Plan Discharge Prescriptions: No Action nitroglycerin [Nitrostat] 0.4 mg tablet, sublingual 0.4 mg SUBLINGUAL Q5M PRN (Reason: Chest Pain) RF: 0 Aspir-81 81 mg Tablet,Delayed Release (Dr/Ec) 81 mg PO BEDTIME RF: 0 Protonix 20 mg tablet,delayed release (DR/EC) 20 mg PO BEDTIME RF: 0 lisinopril 5 mg tablet 5 mg PO BEDTIME RF: 0 clopidogrel 75 mg tablet 75 mg PO BEDTIME RF: 0 simvastatin 40 mg tablet 40 mg PO BEDTIME RF: 0 Coding Level of Care Code ED Chief Operator Reformer for Selenag Nidhi
[2021-04-13 08:05] VITALS: BP 109/67; PULSE 63; RESP 16; TEMP 37.1; O2SAT 96; BMI 21.6
--- NOTE | 2021-04-13 08:07 | XR_ITS ---
WS: [id number] Portable AP upright chest, 04/13/2021 Clinical Data: CP Comparison: Portable chest, 11/07/2020 Findings: No nodules, masses or effusions are seen. The heart is normal. The pulmonary vascularity is not increased. No pneumonia or pneumothorax is seen. XR/XR chest 1V portable [id number] Impression: Negative chest.
--- NOTE | 2021-04-13 08:08 | ECG_ITS ---
[facility] Test Date: 2021-04-13 Pat Name: Sukhwinder Whitney Department: Room: Gender: Male Match Marker: : 1975 Requested By: Demetrius Miller Order Number: [id number] Pushpa MD: Natalie Rodriguez M.D. Measurements Intervals [place] Rate: 63 P: 70 CT: 128 QRS: -11 QRSD: 109 T: 95 QT: 418 QTc: 430 Interpretive Statements SINUS RHYTHM ANTEROLATERAL MYOCARDIAL INFARCTION , PROBABLY RECENT [40+ ms Q WAVE IN I/aVL/V3-V6] ACUTE VA Compared to ECG 11/07/2020 04:56:08 Sinus bradycardia no longer present Myocardial infarct finding still present Electronically Signed On 04-13-2021 22:40:15 CASINO FLOOR SUPERVISOR by Natalie Rodriguez M.D. [id number]
[2021-04-13] MEDS: aspirin 81 mg Chew Tablet 324 MG PO (08:13)
[2021-04-13 08:15] VITALS: PULSE 78; RESP 18; O2SAT 96
--- NOTE | 2021-04-13 08:16 | PC.NURSE ---
Pt placed on teletypesetter monitor immediately after EKG performed.
[2021-04-13] MEDS: nitroglycerin 0.4 mg sublingual Tablet SUBLINGUAL (08:25)
[2021-04-13 08:47] LABS: Basophils % 0.4 %; Eosinophils # 0.1 10^3/uL (0.0-0.8); Eosinophils % 1.5 %; Hematocrit 44.8 % (42.0-52.0); Hemoglobin 14.7 g/dL (11.7-16.6); Lymphocytes # 1.4 10^3/uL (0.8-4.8); Lymphocytes % 17.9 %; Mean Corpuscular HGB Conc 32.8 g/dL (30.0-36.0); Mean Corpuscular Hemoglobin 31.5 pg (28.0-34.0); Mean Corpuscular Volume 96.1 fl (80-94); Mean Platelet Volume 9.7 fL (7.4-10.4); Monocytes # 0.5 10^3/uL (0.2-0.9); Monocytes % 6.6 %; Neutrophils # 5.83 10^3/uL (1.8-7.7); Neutrophils % 73.5 %; Nucleated Red Blood Cells % 0 %; Platelet Count 247 10^3/cmm (130-400); Red Blood Count 4.66 10^6/uL (4.1-5.3); White Blood Count 7.9 10^3/uL (4.0-10.0)
[2021-04-13 09:09] VITALS: BP 95/63; PULSE 56; RESP 18; O2SAT 95
[2021-04-13 09:20] LABS: SARS Covid-2 Antigen Negative (Negative)
[2021-04-13 09:31] LABS: INR 1.09 (0.8-1.2)
[2021-04-13 09:32] LABS: Partial Thromboplastin Time 30.1 SECONDS (23.9-36.7)
[2021-04-13 09:34] LABS: D Dimer <= 0.27 ug/mIFEU (0-0.59)
[2021-04-13 09:39] LABS: Troponin(5th) Baseline 7 ng/L (0-15)
[2021-04-13 09:48] LABS: Alanine Aminotransferase 15 U/L (0-41); Alkaline Phosphatase 66 IU/L (40-130); Anion Gap 15.2 (5-19); Aspartate Amino Transferase 17 U/L (0-40); Blood Urea Nitrogen 15 mg/dL (6-20); Calcium 8.7 mg/dL (8.5-10.5); Carbon Dioxide 21 mmol/L (22-29); Chloride 105 mmol/L (98-107); Globulin 2.3 g/dL (1.3-4.6); Glomerular Filtration Rate 177.5 mL/min (90-130); Glucose 103 mg/dL (65-115); Lipase 176 U/L (13-60); NT Pro B Type Natriuretic Pept 220 pg/mL (0-125); Osmolality Calculated 285 mOsm/kg (285-295); Potassium 4.2 mmol/L (3.5-5.1); Sodium 137 mmol/L (136-145); Total Bilirubin 0.2 mg/dL (0.15-1.2); Total Protein 6.3 g/dL (6.6-8.7)
--- NOTE | 2021-04-13 09:58 | PC.NURSE ---
IV placed by BLAISE Lisa.
[2021-04-13 10:08] VITALS: BP 100/64; PULSE 60; RESP 15; O2SAT 95
--- NOTE | 2021-04-13 10:08 | ECG_ITS ---
[facility] Test Date: 2021-04-13 Pat Name: Sukhwinder Whitney Department: Room: Gender: Male Media Intern: : 1975 Requested By: Demetrius Miller Order Number: [id number] Pushpa MD: Natalie Rodriguez M.D. Measurements Intervals [place] Rate: 47 P: 69 OR: 123 QRS: -34 QRSD: 111 T: 115 QT: 490 QTc: 436 Interpretive Statements SINUS BRADYCARDIA WITH SINUS ARRHYTHMIA LEFT AXIS DEVIATION [QRS AXIS < -30] ANTEROLATERAL MYOCARDIAL INFARCTION , PROBABLY RECENT [40+ ms Q WAVE IN I/aVL/V3-V6] ACUTE [place] Compared to ECG 04/13/2021 08:00:03 Left-axis deviation now present Sinus rhythm no longer present Myocardial infarct finding still present Electronically Signed On 04-13-2021 22:54:34 THROAT CUTTER by Natalie Rodriguez M.D. [id number]
--- NOTE | 2021-04-13 11:56 | PC.NURSE ---
According to staff, pt wants to go home AMA. Lab states that pt is refusing second troponin. This RN enters room and pt states he wants his IV removed. This RN explains to pt with his history of [place] that it's important he stays and completes his visit. 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 This RN explains to pt that the steak tenderizer machine with more than likely want him to come to the ER. Pt and SO adamant that pt is going home. Risks of leaving AMA explained by RN. Pt verbalized understanding and signs out AMA.
== END 2021-04-13 11:53 | disposition left against medical advice (07) ==
PROVIDERS: Emergency Provider Emergency Medicine; PCP Family Medicine
DX: R07.9 Chest pain, unspecified (principal); Z79.82 Long term (current) use of aspirin; Z79.02 Long term (current) use of antithrombotics/antiplatelets; Z86.73 Personal history of transient ischemic attack (TIA), and cerebral infarction without residual deficits; I25.10 Atherosclerotic heart disease of native coronary artery without angina pectoris; E78.5 Hyperlipidemia, unspecified; I10 Essential (primary) hypertension; I25.2 Old myocardial infarction; F17.210 Nicotine dependence, cigarettes, uncomplicated; Z20.822 Contact with and (suspected) exposure to COVID-19
CPT/HCPCS: 36415; 71045; 80053; 83690; 83880; 84484; 85025; 85378; 85610; 85730; 87426; 93005; 99284

== ENCOUNTER → 2021-10-05 13:10 | Outpatient (BNVA) | payer MEDICARE, MEDICAID, SELFPAY | PROVIDERS: PCP Family Medicine; Visit Provider Internal Medicine Cardiovascular Disease | DX: I25.5 Ischemic cardiomyopathy (principal); I10 Essential (primary) hypertension; F17.210 Nicotine dependence, cigarettes, uncomplicated; E78.5 Hyperlipidemia, unspecified; I25.2 Old myocardial infarction; I25.10 Atherosclerotic heart disease of native coronary artery without angina pectoris; I63.512 Cerebral infarction due to unspecified occlusion or stenosis of left middle cerebral artery | CPT/HCPCS: 99213; 99214 ==

== ENCOUNTER → 2023-10-29 13:15 | Outpatient (BNVA) | payer MEDICARE, MEDICAID, SELFPAY | PROVIDERS: PCP Family Medicine; Visit Provider Internal Medicine Cardiovascular Disease | DX: I25.2 Old myocardial infarction (principal); E78.5 Hyperlipidemia, unspecified; I25.5 Ischemic cardiomyopathy; I10 Essential (primary) hypertension; I25.10 Atherosclerotic heart disease of native coronary artery without angina pectoris; F17.219 Nicotine dependence, cigarettes, with unspecified nicotine-induced disorders; Z86.73 Personal history of transient ischemic attack (TIA), and cerebral infarction without residual deficits | CPT/HCPCS: 99213 ==